=== PATIENT | male | born 1985 | race Caucasian/White ===

== ENCOUNTER 2020-01-29 20:39 | Emergency (ER) | payer BC, OTHER ==
--- NOTE | 2020-01-29 20:59 | ER Document Report ---
ED General - General Chief Complaint: Flu Symptoms Stated Complaint: FLU SYMPTOMS/CONTACT WITH COVID + Time Seen by Provider: 01/29/20 20:57 TRAVEL OUTSIDE OF THE [place] IN LAST 30 DAYS: No - HPI Notes: 34-year-old male presents with feeling as though he has pneumonia. Patient states for the past 3 weeks he has been feeling symptoms similar to pneumonia when he had it previously, he denies cough or shortness of breath, though states he has an itchiness in his chest. He has had some fatigue and lightheadedness recently. He has noted that his blood sugar has been having large swings, sometimes going from the 300s then too low. He monitors via insulin pump. He has had no new changes to the pump or insulin, does not think it is malfunctioning. Additionally he has had a COVID exposure approximately 1 week ago from a coworker. He has no vomiting or diarrhea. He states that typically when he is sick he does notice fluctuations in his blood sugar. - Related Data Allergies/Adverse Reactions: No Known Allergies Allergy (Unverified 09/16/15 15:29) Past Medical History - General Information source: Patient - Social History Smoking Status: Unknown if Ever Smoked Family History: Reviewed & Not Pertinent Endocrine Medical History: Reports: Hx Diabetes Mellitus Type 1 Psychiatric Medical History: Reports: Hx Attention Deficit Hyperactivity Disorder, Hx Depression - Immunizations Hx Diphtheria, Pertussis, Tetanus Vaccination: - unknown Review of Systems - Review of Systems Constitutional: denies: Fever EENT: No symptoms reported Cardiovascular: Lightheaded Respiratory: denies: Short of breath Gastrointestinal: denies: Abdominal pain, Nausea, Vomiting Genitourinary: No symptoms reported Male Genitourinary: No symptoms reported Musculoskeletal: denies: Muscle pain Skin: No symptoms reported Hematologic/Lymphatic: No symptoms reported Neurological/Psychological: denies: Headaches Physical Exam - Vital signs Vitals: Temp Pulse Resp BP Pulse Ox 98.9 F 81 20 147/82 H 98 01/29/20 21:00 01/29/20 21:00 01/29/20 21:00 01/29/20 21:00 01/29/20 21:00 - General General appearance: Appears well In distress: None - HEENT Head: Normocephalic, Atraumatic Extraocular movements intact: Yes Pupils: PERRL - Respiratory Chest status: Nontender Breath sounds: Normal - Cardiovascular Rhythm: Regular, Irregularly irregular - Abdominal Tenderness: Nontender - Extremities General lower extremity: No: Edema - Neurological Neuro grossly intact: Yes Cognition: Normal Orientation: AAOx4 - Psychological Associated symptoms: Normal affect - Skin Skin Temperature: Warm Course - Re-evaluation Re-evalutation: 01/29/20 22:07 89 male type I diabetic here for concern for pneumonia. No cough or shortness of breath, some vague chest itchiness type symptoms. Additionally with large fluctuations in his blood sugar. He is well-appearing on exam, afebrile, lungs are clear, grossly neurologically intact. Per his pump his blood sugar was 240, he bolused himself at bedside. Given his COVID exposure, concerned that he may be coming down with COVID infection. Have ordered swab and chest x-ray to assess. Given his large fluctuations in blood sugar, will obtain basic labs to ensure that no acidosis is present, also check renal function to assure that he is not clearing insulin due to CONCHIS. 01/29/20 23:09 No leukocytosis or left shift. No anemia. Electrolytes are within normal limits. Creatinine is within normal limits. pH is normal, bicarb is normal, no anion gap. His labs do not suggest DKA. Urine not suggestive of UTI. Chest x- ray is without consolidation. 01/29/20 23:15 Patient was updated on results. I discussed with him quarantining at home until COVID results. He was given return precautions, stable at time of discharge. - Vital Signs Vital signs: Temp Pulse Resp BP Pulse Ox 98.9 F 81 20 147/82 H 98 01/29/20 21:00 01/29/20 21:00 01/29/20 21:00 01/29/20 21:00 01/29/20 21:00 - Laboratory Result Diagrams: 01/29/20 22:12 01/29/20 22:12 Laboratory results interpreted by me: 01/29/20 01/29/20 01/29/20 21:16 22:12 22:12 Ray % (Auto) 13.9 H Sodium 135.4 L Glucose 272 H POC Glucose 240 H Urine Protein Urine Glucose (UA) Urine Ketones Urine Ascorbic Acid 01/29/20 22:23 Ray % (Auto) Sodium Glucose POC Glucose Urine Protein 30 H Urine Glucose (UA) 150 H Urine Ketones TRACE H Urine Ascorbic Acid 20 H - Diagnostic Test Radiology reviewed: Image reviewed, Reports reviewed - EKG Interpretation by Me Additional EKG results interpreted by me: 01/29/20 22:02 EKG is interpreted by me. Sinus rhythm, rate 69. There is no ST elevation, there is some evidence of early re-pole. No peaked T's. Discharge - Discharge Clinical Impression: Close exposure to COVID-19 virus Condition: Stable Disposition: HOME, SELF-CARE Additional Instructions: You have been tested for COVID, as discussed you should receive results in a few days. Please quarantine at home until we receive results. If positive he will need to complete 14 days of quarantine additionally. Please follow-up with your doctor. Return to the emergency department for any concerning worsening symptoms.
[2020-01-29 22:25] LABS: ABSOLUTE BASOPHILS # (AUTO) 0.1 10^3/uL (0.0-0.2); ABSOLUTE EOSINOPHILS # (AUTO) 0.1 10^3/uL (0.0-0.6); ABSOLUTE MONOCYTES (AUTO) 0.9 10^3/uL (0.1-1.4); ABSOLUTE NEUT (AUTO) 3.2 10^3/uL (1.7-8.2); BASOPHILS % (AUTO) 1.1 % (0-2); EOSINOPHILS % (AUTO) 1.9 % (0-6); HEMATOCRIT 46.7 % (37.9-51.0); HEMOGLOBIN 16.2 g/dL (13.5-17.0); LYMPHOCYTES % (AUTO) 31.8 % (13-45); MEAN CORPUSCULAR HGB CONC 34.7 g/dL (32.0-36.0); MEAN CORPUSCULAR VOLUME 87 fl (80-97); MONOCYTES % (AUTO) 13.9 % (3-13); PLATELET COUNT 296 10^3/uL (150-450); RED CELL DISTRIBUTION WIDTH 13.3 % (11.5-14.0); SEGMENTED NEUTROPHILS % (AUTO) 51.3 % (42-78); TOTAL CELLS COUNTED % (AUTO) 100 %; VENOUS BLOOD BASE EXCESS 1.1 mmol/L; VENOUS BLOOD HCO3 26.4 mmol/L (20-32); VENOUS BLOOD PCO2 44.3 mmHg (35-63); VENOUS BLOOD PH 7.39 (7.30-7.42); WHITE BLOOD COUNT 6.3 10^3/uL (4.0-10.5)
--- NOTE | 2020-01-29 22:36 | RADIOLOGY REPORT (SQ) ---
EXAM DESCRIPTION: XR CHEST 1 VIEW COMPLETED DATE/TME: 01/29/2020 21:24 CLINICAL HISTORY: 34 years, Male, possible covid COMPARISON: Prior study from 09/16/2015 NUMBER OF VIEWS: One TECHNIQUE: Single frontal view of the chest was obtained portably LIMITATIONS: None. FINDINGS: Cardiac and mediastinal contours are stable. Lungs are clear. No pleural effusion or pneumothorax. IMPRESSION: No acute disease. copyright 2010 [employer]- All Rights Reserved
[2020-01-29 22:37] LABS: APPEARANCE,URINE CLEAR; BILIRUBIN,URINE NEGATIVE (NEGATIVE); COLOR,URINE YELLOW; GLUCOSE, URINE 150 mg/dL (NEGATIVE); KETONES,URINE TRACE mg/dL (NEGATIVE); LEUKOCYTE ESTERASE,URINE NEGATIVE (NEGATIVE); NITRITE,URINE NEGATIVE (NEGATIVE); PROTEIN,URINE 30 mg/dL (NEGATIVE); URINE SPECIFIC GRAVITY 1.035; UROBILINOGEN,URINE NEGATIVE mg/dL (<2.0)
[2020-01-29 22:42] LABS: ANION GAP 6 (5-19); BLOOD UREA NITROGEN 17 mg/dL (7-20); CALCIUM 9.1 mg/dL (8.4-10.2); CARBON DIOXIDE 28 mmol/L (22-30); CHLORIDE 101 mmol/L (98-107); GLUCOSE 272 mg/dL (75-110); POTASSIUM 4.4 mmol/L (3.6-5.0)
[2020-01-29 23:45] VITALS: BP 130/79
--- NOTE | 2020-01-30 17:04 | EKG REPORT ---
SEVERITY:- ABNORMAL ECG - SINUS RHYTHM NONSPECIFIC T ABNORMALITIES, INFERIOR LEADS ST ELEV, PROBABLE NORMAL EARLY REPOL PATTERN : Confirmed by: Treva Oabndo MD 30-Jan-2020 17:04:08
== END 2020-01-29 23:59 | disposition home or self-care (01) ==
LOC: ER 20:39
DX: R53.83 Other fatigue (principal); R42 Dizziness and giddiness; L29.9 Pruritus, unspecified; E10.9 Type 1 diabetes mellitus without complications; Z96.41 Presence of insulin pump (external) (internal); Z20.828 Contact with and (suspected) exposure to other viral communicable diseases
CPT/HCPCS: 93005; 99285; 36415; 82962; 85025; 87635; 80048; 81001; 82803; 71045; 93010; C9803